=== PATIENT | female | born 1980 | race Caucasian/White ===

== ENCOUNTER 2019-12-28 21:51 | Inpatient (IN) ==
[2019-12-28 23:05] LABS: Bilirubin,Urine Negative (Negative); Blood,Urine Negative (Negative); Clarity,Urine Clear (Clear); Color,Urine Yellow (Yellow); Glucose,Urine (UA) Normal (Normal); Ketones,Urine Negative (Negative); Leukocyte Esterase,Urine Trace (Negative); Nitrite,Urine Negative (Negative); PH,Urine 5.5 pH Units (5.0-8.0); Protein,Urine Negative (Neg-Trace); Specific Gravity,Urine >= 1.030 (1.010-1.025); Urobilinogen,Urine Normal (Normal)
[2019-12-28 23:05] LABS: Basophils % 0.3 %; Eosinophils # 0.1 K/mcL (0.0-0.6); Eosinophils % 0.4 %; Hematocrit 36.3 % (35.3-44.9); Hemoglobin 11.1 g/dL (11.5-15.4); Immature Granulocytes % 0.4 % (0-4); Lymphocytes # 1.6 K/mcL (0.6-4.6); Lymphocytes % 11.8 %; Mean Corpuscular HGB Conc 30.6 g/dL (31.6-35.5); Mean Corpuscular Hemoglobin 23.6 pg (28.0-33.3); Mean Corpuscular Volume 77.1 fL (83.0-100.0); Mean Platelet Volume 10.3 fL (9.4-12.4); Monocytes # 0.8 K/mcL (0.0-1.3); Platelet Count 379 K/mcL (140-400); Red Blood Count 4.71 M/mcL (3.82-4.97); Segmented Neutrophils % 81.1 %; White Blood Count 13.6 K/mcL (4.3-11.1)
[2019-12-28 23:08] LABS: Squamous Epithelial Cell,Urine Few per hpf (None-Few); WBC,Urine 0-3 per hpf (0-3)
[2019-12-28 23:16] LABS: Amphetamine Screen,Urine Positive ng/mL (Cutoff=1000); Barbiturate Screen,Urine Negative ng/mL (Cutoff=200); Benzodiazepines Screen,Urine Negative ng/mL (Cutoff=200); Cannabinoid Screen,Urine Positive ng/mL (Cutoff = 50); Cocaine Screen,Urine Negative ng/mL (Cutoff= 300); Opiate Screen,Urine Negative ng/mL (Cutoff=300); Phencyclidine Screen,Urine Negative ng/mL (Cutoff=25)
[2019-12-28 23:27] LABS: Acetaminophen < 10 mcg/mL (10-20); BUN/Creatinine Ratio 16 (6-26); Blood Urea Nitrogen 16 mg/dL (6-20); Calcium 10.3 mg/dL (8.6-10.3); Carbon Dioxide 24 mEq/L (23-29); Chloride 101 mEq/L (98-107); Ethanol < 10 mg/dL (Less than 10); Glucose 187 mg/dL (70-105); Osmolality,Calculated 286 (280-300); Potassium 3.1 mEq/L (3.5-5.1); Salicylate < 2.5 mg/dL (15.0-30.0); Sodium 135 mEq/L (136-145); eGFR For African Americans > 60 (> 60); eGFR For Non-African Americans > 60 (> 60)
[2019-12-29] MEDS ORDERED: Haloperidol Lactate 5 MG/ML VIAL IVP ONE (00:35)
[2019-12-29] MEDS ORDERED: Haloperidol Lactate 5 MG/ML VIAL IM ONE (00:58)
[2019-12-29] MEDS ORDERED: Haloperidol Lactate 5 MG/ML VIAL IM PRN (02:06)
[2019-12-29] MEDS ORDERED: Mag Hydrox/Al Hydrox/Simeth 30 ML UDC PO PRN (02:06)
[2019-12-29] MEDS ORDERED: haloperidoL 5 MG TABLET PO PRN (02:06)
[2019-12-29] MEDS ORDERED: Ibuprofen 400 MG TABLET PO PRN (02:06)
[2019-12-29] MEDS ORDERED: MOM Conc 10 ML UD.LIQ PO PRN (02:06)
[2019-12-29] MEDS ORDERED: *HR* LORazepam 2 MG/ML VIAL IM PRN (02:06)
[2019-12-29] MEDS ORDERED: *HR* LORazepam 1 MG TABLET PO PRN (02:06)
[2019-12-29] MEDS: QUEtiapine Fumarate 25 MG TABLET PO PRN (20:50)
[2019-12-29] MEDS: hydrOXYzine pamoate 25 MG CAPSULE PO PRN (20:50)
[2019-12-29] MEDS: risperiDONE 1 MG TABLET PO SCH (20:50)
[2019-12-30] MEDS: risperiDONE 1 MG TABLET PO SCH (21:28)
[2019-12-30] MEDS: QUEtiapine Fumarate 25 MG TABLET PO PRN (21:29)
[2019-12-30] MEDS: hydrOXYzine pamoate 25 MG CAPSULE PO PRN (21:29)
[2019-12-31] MEDS: risperiDONE 1 MG TABLET PO SCH (20:59)
[2020-01-01] MEDS: Nicotine 21 MG PATCH.TD24 TD SCH (18:11)
[2020-01-01] MEDS: risperiDONE 1 MG TABLET PO SCH (20:43)
[2020-01-01] MEDS: hydrOXYzine pamoate 25 MG CAPSULE PO PRN (20:43)
[2020-01-01] MEDS: QUEtiapine Fumarate 25 MG TABLET PO PRN (20:43)
[2020-01-02] MEDS: Nicotine 21 MG PATCH.TD24 TD SCH (09:22)
[2020-01-02 09:28] VITALS: BP 112/77
== END 2020-01-02 14:25 | disposition home or self-care (01) | DRG 753 ==
LOC: EMEROOARM 21:51 → 1ANU 12-29 00:46
PROVIDERS: ADMIT Psychiatry & Neurology Psychiatry; ATTEND Psychiatry & Neurology Psychiatry